=== PATIENT | female | born 2000 | race Caucasian/White ===

== ENCOUNTER 2020-01-11 03:42 | Outpatient (CLI) | payer OTHER, SELFPAY ==
[~2020-01-11] VITALS: Ht 154.9 cm; Wt 72.3 kg
--- NOTE | 2020-01-11 06:29 | REPVR ---
PROCEDURE INFORMATION: Exam: US After First Trimester, Transabdominal Exam date and time: 01/11/2020 5:54 AM Age: 19 years old Clinical indication: Screening exam; Other: No care; ; Additional info: No care edc 01/11/20 bpp and weight TECHNIQUE: Imaging protocol: Real-time transabdominal obstetrical ultrasound of the maternal pelvis and a second or third trimester with image documentation. COMPARISON: No relevant prior studies available. FINDINGS: Other findings: Normal S/D ratio 1.95. Gestation: Single live intrauterine gestation. Heart rate: heart rate 135 bpm. Presentation: Cephalic position. Placenta: Placenta is anterior. Grade 3. No previa. No abruption. Amniotic fluid: Normal amniotic fluid. Amniotic fluid index 9.8 cm. ANATOMY: Cerebellum: Suboptimal visualization due to late gestational age. Cisterna magna: Suboptimal visualization due to late gestational age. Cerebral ventricles: Suboptimal visualization due to late gestational age. Upper lip and nose: Suboptimal visualization due to position. Heart four-chamber view, heart size and position: Suboptimal visualization due to position. Kidneys: Unremarkable. Stomach: Unremarkable. Bladder: Unremarkable. Umbilical cord vessel number: Unremarkable 3 vessel cord. Spine: Suboptimal visualization due to position. Arms and legs: Suboptimal visualization due to position. Gender: Undetermined. BIOMETRY: Estimated gestational age: Ultrasound composite gestational age 38 weeks 0 days. Estimated due date: JUANCARLOS 01/25/2020. Estimated weight: Estimated weight 3524 g (7 lb 12 oz); 66% Biparietal diameter: BPD 9.4 cm, 38 weeks 1 day. Head circumference: Head circumference 33.9 cm, 39 weeks 0 days. Abdominal circumference: Abdominal circumference 35.3 cm, 39 weeks 2 days. Femur length: Femur length 7.2 cm, 36 weeks 6 days. MATERNAL ANATOMY: Uterus: Unremarkable. Cervix: Not well seen. Right adnexa: Ovary is obscured by overlying bowel gas. Left adnexa: Ovary is obscured by overlying bowel gas. IMPRESSION: 1. Single living IUP in cephalic position with ultrasound composite gestational age 38 weeks 0 days. 2. JUANCARLOS 01/25/2020. 3. Limited evaluation of anatomy due to late gestational age and position. 4. Biophysical profile reported below. PROCEDURE INFORMATION: Exam: US Biophysical Profile Without Non-Stress Test Exam date and time: 01/11/2020 5:54 AM Age: 19 years old Clinical indication: Screening exam; Other: No care; ; Additional info: No care edc 01/11/20 bpp and weight TECHNIQUE: Imaging protocol: US biophysical profile without non-stress testing. COMPARISON: No relevant prior studies available. FINDINGS: BIOPHYSICAL PROFILE: Breathin/2 Gross body movements: 2/2 tone: 2/2 Qualitative/qualitative amniotic fluid: 2/2. JAYESH 9.8 cm. Biophysical Profile Score: 8/8 IMPRESSION: Biophysical profile score is 8 out of 8. Electronically signed by: Ellis Fernandes On 01/11/2020 06:28:49 AM
[2020-01-11 07:13] LABS: BASO % 0.2 % (0.0-1.0); EOS % 0.2 % (0.0-3.0); HEMATOCRIT 32.5 % (36.0-47.0); HEMOGLOBIN 9.9 g/dl (12.0-15.5); LYMPH # 1.2 10^3/uL (1.5-5.0); LYMPH % 9.9 % (24.0-44.0); MEAN CORPUSCULAR HEMOGLOBIN 21.5 pg (27.0-33.0); MEAN CORPUSCULAR HGB CONC 30.5 g/dl (32.0-36.5); MEAN CORPUSCULAR VOLUME 70.5 fl (80.0-96.0); MONO # 0.9 10^3/uL (0.0-0.8); MONO % 7.8 % (0.0-5.0); NEUTROPHILS # 9.4 10^3/uL (1.5-8.5); NEUTROPHILS % 80.9 % (36.0-66.0); PLATELET COUNT, AUTOMATED 325 10^3/uL (150-450); RED BLOOD COUNT 4.61 10^6/uL (4.00-5.40); WHITE BLOOD COUNT 11.7 10^3/uL (4.0-10.0)
[2020-01-11] MEDS ORDERED: PRENTAB9 PO (20:14)
--- NOTE | 2020-01-12 04:07 | HPE ---
DATE OF ADMISSION: 01/11/2020 This lady is a 19-year-old, 1, para 0, last menstrual period (LMP) 04/06/2019, estimated date of confinement (EDC) 01/11/2020, at 40 weeks of gestation. She has only had two visits, one at 17 weeks. When she found out she was at 14 weeks, she had a 3-week waiting period and then the only other followup was a 20-week anatomy scan, which she said was normal; and we reviewed the anatomy scan on her phone and indicated her EDC was 01/11/2020 and there were no anomalies noted. Limited blood work that we saw again on her phone from her one visit showed that she was hepatitis B negative, hepatitis C negative, cystic fibrosis (CF) negative, rubella immune. Varicella immune. Pap normal. She did not do her 1-hour glucose. In her medical history, she has no medical issues, no surgeries, and she has no known allergies. In family history, her mother is alive and well. Her father has hypertension, cardiac issues. Her brother is alive and well. 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 She has been here in the area since September but did not seek any care as she had no insurance. Her is a cook in the [employer], and she has just received [employer]. Her blood pressure is 108/65, respirations are 18, pulse 106, and temperature is 97.8. Urine is not available at the present time. On examination, she does not appear to be in any distress. Symphysis fundus height is 40, vertex presenting, 1 cm, posterior. No vaginal loss or bleeding. Cervix is soft, -3 station. Intact membranes. Category 1 strip. Plan of care is to do a panel with group B streptococcus (GBS, gonorrhea and chlamydia, biophysical profile with estimated weight, nonstress test (NST), and COVID-19 testing. The patient plans to call Jacquelyn Roberson this morning to set up a formal appointment. Patient was discharged undelivered. She was given the phone number and the social contact worker to call.
[2020-01-12 10:57] LABS: HEPATITIS C VIRUS ABY INDEX 0.1 INDEX (<0.8); HIV 1&2 SCREEN CENTAUR NEGATIVE (NEGATIVE)
== END 2020-01-11 07:00 | disposition home or self-care (01) ==
LOC: M LDO 03:42
PROVIDERS: ATTEND Obstetrics & Gynecology
DX: O47.1 False labor at or after 37 completed weeks of gestation (principal); Z3A.40 40 weeks gestation of pregnancy
CPT/HCPCS: 36415; 59025; 76811; 76819; 76820; 85025; 86762; 86780; 86803; 87340; 87389; G0378; G0463; U0002

== ENCOUNTER 2020-01-11 19:25 | Inpatient (IN) | payer OTHER, SELFPAY ==
[~2020-01-11] VITALS: Ht 154.9 cm; Wt 70.9 kg
[2020-01-11] VITALS (20 sets, daily range): BP systolic 102–134; BP diastolic 62–87
[2020-01-11] MEDS ORDERED: PRENTAB9 PO (20:14)
[2020-01-11] MEDS ORDERED: LR 1,000 ML IV SCH (20:16)
[2020-01-11] MEDS ORDERED: LACTATED RINGER'S 1000 ML IV STA (20:16)
[2020-01-11] MEDS ORDERED: FENTANYL 2MCG/ML ROPIVACAINE 0.2% IN 0.9% NACL 100ML IVBAG As Ordered ONE (21:11)
[2020-01-11] MEDS ORDERED: REFRIGERATOR IV KEYS XX PRN (21:20)
[2020-01-11] MEDS ORDERED: LACTATED RINGER'S 1000 ML IV PRN (21:20)
[2020-01-11] MEDS ORDERED: NALOXONE INJ 0.4MG/1ML VIAL (J2310 PER 1MG) IV PRN (21:20)
[2020-01-11] MEDS ORDERED: EPIDURAL COMMENT XX SCH (21:20)
[2020-01-11] MEDS ORDERED: EPIDURAL/PCA KEYS XX PRN (21:20)
[2020-01-11] MEDS ORDERED: FENTANYL/ROPIVACAINE/NACL BAG 100 ML EPIDURAL SCH (21:20)
[2020-01-11] MEDS ORDERED: ePHEDrine SULFATE 25 MG/5 ML(5MG/ML) SYRINGE IV PRN (21:20)
[2020-01-11] MEDS ORDERED: diphenhydrAMINE 50MG/ML VIAL (J1200) IV PRN (21:20)
[2020-01-11] MEDS ORDERED: ONDANSETRON 4MG/2ML VIAL IV PRN (21:20)
[2020-01-11 23:45] LABS: CHLAMYDIA DNA AMPLIFICATION NEGATIVE (NEGATIVE); GC DNA AMPLIFICATION NEGATIVE (NEGATIVE)
[2020-01-12] VITALS (22 sets, daily range): BP systolic 100–134; BP diastolic 56–89
--- NOTE | 2020-01-12 00:27 | HPEPDOC ---
Obstetrical History & Physical General Date of Admission January 11, 2020 at 20:15 History of Present Illness Francoise is a 19yo with SIUP at 40w1d by lmp c/w early u/s presenting for 2nd time today with regular painful ctx. She was discharged this morning 1cm. States ctx now much stronger/closer together and she is also leaking fluid from her vagina. Unsure when that started. No vaginal bleeding. Good movement. No f/c/n/v/CP/SOB. Chief Complaint: Contractions, term, LOF, term Information Provided By: Patient Care Care: Limited Care Dating Final EDC by: LMP, 1st trimester (US) Antepartum Course Diagnos(e)s No care between 20 and 40 weeks due to lack of access (was seen in [place] the first 20 weeks of ), used marijuana and tobacco prior to but stopped with , excessive weight gain (40 pounds), anemia Height (inches): 61 Pre- weight (lbs.): 116 Admission Weight (lbs.): 156 Change in Weight (lbs.): 40 Past Medical History Past Obstetrical History : Past Obstetrical History: Primgravida (ETOP with D&C prior) [employer] History: Theraputic Past Medical History Medical History benign Surgical History: Dilatation and Curettage Family History Significant Family History: No pertinent family hx Social History Marital Status: Family situation: Spouse/partner home Psychosocial History: No pertinent psych hx * Smoker: former Smoker (stopped with ) Alcohol: Denies Drugs: denies (stopped marijuana with ) Allergies Coded Allergies: No Known Allergies (Unverified , 01/11/20) Medications Scheduled No.137/Iron/Folic Acd ( Vitamin Tablet) 1 Each Tablet, 1 TAB PO DAILY Physical Examination Physical Examination GENERAL: Alert and oriented times three. ABDOMEN: Gravid and non-tender to touch. FETUS: Is vertex (VTX) by sterile vaginal examination (SVE) EXTREMITIES: No edema of BLE SSE: pooling of scant fluid in vagina- does not appear consistent with amniotic fluid, negative valsalva. Negative ferning. On SCE 6/80/-2 and membranes palpate intact Vital Signs/I&O Vital Signs Date Time Temp Pulse Resp B/P (MAP) Pulse Ox O2 Delivery O2 Flow Rate FiO2 5/14/20 23:31 83 118/87 (97) 01/11/20 23:15 98.8 16 Laboratory Data [facility] Laboratory Tests 2 01/11/20 20:30: 01/11/20 22:05: Chlamydia trachomatis DNA (ROBBIE) NEGATIVE, Neisseria gonorrhoeae DNA (ROBBIE) NEGATIVE Pertinent Laboratoy Data Blood Type: O+ RBC Antibody Screen: Negative HIV: Unknown Hepatitis B: Unknown Hepatitis C: Unknown Rapid Plasma Reagin: Unknown Rubella: Unknown Varicella: Unknown Chlamydia/Gonorrhea: Negative Group B Streptococcus: Unknown Anatomy Ultrasound Ultrasound Date: January 11, 2020 Placenta Location: Anterior Normal Anatomy: Yes (from what could be observed but very limited given gestational age) Placenta Previa: No Steroid Therapy Steroid Therapy: No Vaginal Examination Dilation: 6 cm Effacement: 80% Station: -2 Cervical Consistency: Soft Cervical Position: Anterior Presentation: Cephalic presentation Assessment Heart Rate (FHR): 140 Variability: Moderate Accelerations: Positive Decelerations: None Tocometer Contractions: Yes Frequency: regular, every 2-5 min. Duration: greater than 60 seconds Strength: palpated as strong Assessment/Plan Assessment Francoise is a 19yo with SIUP at 40w1d by lmp c/w early u/s presenting in active labor with SCE 6/80/-2. No ROM based on negative valsalva/nitrazine/ferning and membranes palpate intact on SCE. Cephalic by SCE. Vitals wnl, exam benign. PNC/PMhx significant for: No care between 20 and 40 weeks due to lack of access (was seen in CT the first 20 weeks of ), used marijuana and tobacco prior to but stopped with , excessive weight gain (40 pounds), anemia Plan Admit and orient. 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 Diet: clear liquids Group B Streptococcus (GBS) unknown, NO tx since full term Labs and intravenous (IV) per unit protocol. Lactated Ringers (LR): Bolus 1000 mL, then at 125 mL/hr. Anticipate normal spontaneous delivery () Candidate for epidural as desired Safe to proceed MD Adriel Vega Katrina D MD January 12, 2020 00:06
[2020-01-12 00:54] LABS: AMPHETAMINES URINE REFLEX NEGATIVE (NEGATIVE); BARBITURATES URINE REFLEX NEGATIVE (NEGATIVE); BENZODIAZEPINES URINE REFLEX NEGATIVE (NEGATIVE); CANNABINOIDS URINE REFLEX NEGATIVE (NEGATIVE); COCAINE METABOLITE URINE REFLE NEGATIVE (NEGATIVE); METHADONE URINE REFLEX NEGATIVE (NEGATIVE); OPIATES URINE REFLEX NEGATIVE (NEGATIVE); PHENCYCLIDINE URINE REFLEX NEGATIVE (NEGATIVE)
[2020-01-12] MEDS ORDERED: OXYTOCIN 30 UNITS IN 0.9% NaCl 500ML IV BAG (J2590) As Ordered ONE (03:12)
[2020-01-12] MEDS ORDERED: OXYTOCIN DRIP 30 UNITS in IV 1 EA IV SCH (03:54)
[2020-01-12] MEDS ORDERED: DIBUCAINE 1% OINTMENT 30GM TOP PRN (04:00)
[2020-01-12] MEDS ORDERED: DOCUSATE SODIUM 100 MG CAP PO PRN (04:00)
[2020-01-12] MEDS ORDERED: MEASLES,MUMPS,RUBELLA VACCINE INJ (MMR-II) (90707) SC SCH (04:00)
[2020-01-12] MEDS ORDERED: RHOGAM 300 MCG (1500 IU) INJ (J2790) IM SCH (04:00)
[2020-01-12] MEDS ORDERED: ACETAMINOPHEN TAB 650MG DOSE (2X325MG) PO PRN (04:00)
[2020-01-12] MEDS ORDERED: ACETAMINOPHEN 500 MG TAB PO PRN (04:00)
[2020-01-12] MEDS ORDERED: IBUPROFEN 800 MG TAB PO PRN (04:00)
[2020-01-12] MEDS ORDERED: IBUPROFEN 600 MG TAB PO PRN (04:00)
--- NOTE | 2020-01-12 07:13 | DNPDOC ---
[facility] Delivery Note Delivery Note DATE OF DELIVERY: 01/12/2020 PREDELIVERY DIAGNOSIS: 40w2d active labor POST DELIVERY DIAGNOSIS: Delivered. PROCEDURE: Spontaneous vaginal delivery EDGE RUNNER: Dr. Flores Morel MD ANESTHESIA: epidural ESTIMATED BLOOD LOSS: 300 mL. FINDINGS: 7 pound 8 ounce (3400g) male , Score 9/9, nuchal cord x1 DELIVERY SUMMARY: Francoise is a 19yo [id number] s/p uncomplicated at 0327 on 01/12/20 when she presented to L&D in active labor at 40w2d. She received an epidural, had AROM at 9cm and progressed to C/C/+2 at which point she began pushing. Within just a couple sets of pushes, 's head delivered OA, restituted SHARON. One nuchal cord reduced. Left anterior shoulder delivered with ease followed by right posterior shoulder, then remainder of body delivered to maternal abdomen where was dried and stimulated; nose and mouth suctioned with bulb suction, strong, lusty cry, apgars 9/9. At 2 minutes of life, cord clamped x2 and cut by FOB. Cord blood collected at this time for MBT O pos. With uterine massage and traction on the cord, placenta delivered spontaneously and intact with 3 vessel centrally inserted cord. Pitocin bolus started with delivery of placenta. Fundus then firm at u-2cm with hemostasis noted. Upon inspection of vagina and perineum, small 1mll was noted and repaired with 3-0 vicryl suture in usual fashion. Good cosmetic effect with total reapproximation and complete hemostasis noted. All counts correct x2. Mom and were doing well when I left the room. MD Adriel Vega Katrina D MD January 12, 2020 07:13
[2020-01-12] MEDS: PRENATAL VITAMINS CHEWABLE TABLET PO SCH (07:52)
[2020-01-13 06:00] VITALS: BP 111/73
[2020-01-13] MEDS ORDERED: DOCU100C16 PO (07:58)
[2020-01-13] MEDS ORDERED: IBUP80TA PO (07:58)
[2020-01-13] MEDS ORDERED: PRENCHW PO (07:58)
[2020-01-13] MEDS ORDERED: DIBU10OI TOP (07:58)
[2020-01-13] MEDS: PRENATAL VITAMINS CHEWABLE TABLET PO SCH (08:34)
--- NOTE | 2020-01-14 18:17 | DSES ---
DATE OF ADMISSION: 01/11/2020 DATE OF DISCHARGE: 01/13/2020 A 19-year-old 2, para 1 admitted in active labor at 40 and two weeks of gestation. She had a spontaneous vaginal delivery with epidural in place, live male infant weighing 7 pounds, 8 ounces, 3400 grams, scores of 9 and 9 at one and five minutes respectively. She had basically no care until she came here from [place]. Her blood pressure on discharge is 111/73, respirations 18, pulse 81, temperature is 97.4. Her admitting hemoglobin was 9.9, hematocrit of 32.5, and platelets were 325. On discharge, blood pressure 111/73, respirations 18, pulse 81, temperature is 97.4. We discussed phlebitis, cystitis, mastitis, endometritis and cellulitis, diet, exercise, pain management, perineal, breast and wound care. On discharge, she is to diamond picker her medications at [place], have the six-week checkup at [facility] ([facility]). At that time, control will be discussed. The patient expressed understanding of the same as did her , discharged improved. Followup in six weeks.
== END 2020-01-13 14:30 | disposition home or self-care (01) | DRG 807 ==
LOC: M LDO 19:25 → M LDI 20:15 → M OBS 01-12 06:15
PROVIDERS: ADMIT Obstetrics & Gynecology; ATTEND Obstetrics & Gynecology
PROC: 10E0XZZ Delivery of Products of Conception, External Approach (ICD-10-PCS; principal; 2020-01-12)
PROC: 0HQ9XZZ Repair Perineum Skin, External Approach (ICD-10-PCS; 2020-01-12)
PROC: 10907ZC Drainage of Amniotic Fluid, Therapeutic from Products of Conception, Via Natural or Artificial Opening (ICD-10-PCS; 2020-01-12)
DX: O48.0 Post-term pregnancy (principal); Z37.0 Single live birth; O99.02 Anemia complicating childbirth; Z3A.40 40 weeks gestation of pregnancy; D64.9 Anemia, unspecified; O69.81X0 Labor and delivery complicated by cord around neck, without compression, not applicable or unspecified; O70.0 First degree perineal laceration during delivery